=== PATIENT | female | born 1995 | race Caucasian/White ===

== ENCOUNTER 2017-11-25 17:16 | Emergency (ER) | payer BC ==
[2017-11-25 17:58] VITALS: BP 128/86
[2017-11-25] MEDS ORDERED: DOXYcycline CAP(*) 100 MG PO ONE (18:26)
--- NOTE | 2017-11-25 18:26 | UC ---
Throat Pain/Nasal Santi HPI - HPI Summary HPI Summary: Sara return from a trip to [facility] where she got flu like symtpoms. she now has increased sinus pressure more on the left thatn the right. cough and wheezing. - History of Current Complaint Chief Complaint: UCGeneralIllness Stated Complaint: CONGESTION/FEVER/COUGH Time Seen by Provider: 11/25/17 18:06 Hx Obtained From: Patient Hx Last Menstrual Period: 11/20/13 ?: No Onset/Duration: Sudden Onset, Lasting Days Severity: Moderate Cough: Nonproductive Associated Signs & Symptoms: Positive: Dysphagia, Wheezing, Sinus Discomfort, Nasal Discharge - Allergies/Home Medications Allergies/Adverse Reactions: Allergies Allergy/AdvReac Type Severity Reaction Status Date / Time Amoxicillin Allergy Unknown Unknown Verified 11/25/17 17:58 Reaction Details Home Medications: Home Medications Control 1 tab PO DAILY 11/25/17 [History Confirmed 11/25/17] Sertraline* [Zoloft*] 50 mg PO DAILY 11/25/17 [History Confirmed 11/25/17] PMH/Surg Hx/FS Hx/Imm Hx Previously Healthy: Yes - Surgical History Surgical History: Yes Surgery Procedure, Year, and Place: T & A 7 YRS of age; ear tubes x 2 - Family History Known Family History: Positive: Cardiac Disease, Hypertension - Social History Alcohol Use: Rare Substance Use Type: None Smoking Status (MU): Never Smoked Tobacco - Immunization History Vaccination Up to Date: Yes Review of Systems Constitutional: Negative, Chills, Fatigue Skin: Negative Eyes: Negative ENT: Sore Throat, Nasal Discharge, Sinus Congestion, Sinus Pain/Tenderness Respiratory: Cough Cardiovascular: Negative Gastrointestinal: Negative Genitourinary: Negative Motor: Negative Neurovascular: Negative Musculoskeletal: Negative Neurological: Negative Psychological: Negative Is Patient Immunocompromised?: No All Other Systems Reviewed And Are Negative: Yes Physical Exam Triage Information Reviewed: Yes Appearance: Well-Nourished, Ill-Appearing, Pain Distress Vital Signs: Initial Vital Signs Temp 98.1 F 11/25/17 17:52 Pulse 87 11/25/17 17:52 Resp 14 11/25/17 17:52 BP 128/86 11/25/17 17:52 Pulse Ox 99 11/25/17 17:52 Vital Signs Reviewed: Yes Eye Exam: Normal ENT: Positive: Pharyngeal erythema, Nasal congestion, Dental tenderness, Sinus tenderness Dental Exam: Normal Neck exam: Normal Respiratory Exam: Normal Cardiovascular Exam: Normal Cardiovascular: Positive: RRR, No Murmur, Pulses Normal Abdominal Exam: Normal Bowel Sounds: Positive: Present Musculoskeletal Exam: Normal Neurological Exam: Normal Psychological Exam: Normal Skin Exam: Normal Throat Pain/Nasal Course/Dx - Course Course Of Treatment: hx obtained, exam performed, meds reviewed, treated for sinusitis - Differential Dx/Diagnosis Differential Diagnosis/HQI/PQRI: Otitis Media, Pharyngitis, Sinusitis Provider Diagnoses: sinusitis Discharge - Discharge Plan Condition: Stable Disposition: HOME Prescriptions: DOXYcycline CAP(*) [DOXYcycline 100MG CAP(*)] 100 mg PO BID #13 cap predniSONE TAB* [Deltasone TAB*] 40 mg PO DAILY #14 tab Patient Education Materials: Sinusitis (ED) Forms: *Work Release Referrals: Faith Rincon MD [Primary Care Provider] - Additional Instructions: 1. increase fluid intake 2. Get plenty of rest 3. Take the medication as prescribed.
== END 2017-11-25 18:32 | disposition home or self-care (01) ==
LOC: UCCORT 17:16
DX: J32.9 Chronic sinusitis, unspecified (principal); Z88.1 Allergy status to other antibiotic agents
CPT/HCPCS: 99212; A9270-GY; G0463